=== PATIENT | male | born 1950 | race Caucasian/White ===

== ENCOUNTER 2020-06-19 08:37 | Emergency (ER) | payer MEDICARE, OTHER ==
[~2020-06-19] VITALS: Ht 180.3 cm; Wt 81.8 kg
[2020-06-19] MEDS ORDERED: LISINOPRIL10 MG PO (08:50)
[2020-06-19] MEDS ORDERED: CLOPIDOGREL75 MG PO (08:50)
[2020-06-19] MEDS ORDERED: NORVASC5 M1 PO (08:51)
[2020-06-19] MEDS ORDERED: LORTAB5 PO (08:54)
[2020-06-19] MEDS ORDERED: HYDROCO/APAP1 TA9 PO (09:58)
[2020-06-19 10:35] VITALS: BP 164/77
== END 2020-06-19 10:35 | disposition home or self-care (01) ==
LOC: ED 08:37
DX: S83.92XA Sprain of unspecified site of left knee, initial encounter (principal); M25.462 Effusion, left knee; I12.9 Hypertensive chronic kidney disease with stage 1 through stage 4 chronic kidney disease, or unspecified chronic kidney disease; N18.9 Chronic kidney disease, unspecified; F17.200 Nicotine dependence, unspecified, uncomplicated; X50.0XXA Overexertion from strenuous movement or load, initial encounter; Y93.89 Activity, other specified; Y92.008 Other place in unspecified non-institutional (private) residence as the place of occurrence of the external cause
CPT/HCPCS: L1830

== ENCOUNTER 2024-02-04 15:14 | Emergency (ER) | payer MEDICARE, OTHER ==
[2024-02-04] VITALS (13 sets, daily range): BP systolic 127–171; BP diastolic 52–127
[~2024-02-04] VITALS: Ht 177.8 cm; Wt 77.1 kg
[~2024-02-04 15:14] MED LIST: CLOPIDOGREL75 MG PO; CVS OMEPRAZOLE20 M1 PO; HYDROCO/APAP1 TA9 PO; LISINOPRIL10 MG PO; LORTAB5 PO; MITIGARE0.6 MG PO; NORVASC5 M1 PO; OXYCODO-APAP1 TA2 PO; VITAMIN C1000 MG PO
[2024-02-04 15:52] LABS: BASO% 0.6 % (0-3); EOS% 2.4 % (0-8); HEMATOCRIT 29.6 % (39.0-50.0); HEMOGLOBIN 9.1 g/dl (14.0-18.0); IMMATURE GRANULOCYTES 0.3 % (0.0-5.0); LYMPH% 21.1 % (15-41); MEAN CORPUSCULAR HGB 23.6 pG CALC (26.0-32.0); MEAN CORPUSCULAR HGB CONC 30.7 g/dL CAL (32.0-36.0); NEUT# 5.82 thou/uL (1.82-7.42); NEUT% 62.6 % (42-76); RED BLOOD COUNT 3.85 mill/uL (4.70-6.10); RED CELL DISTRI WIDTH 16.9 % (11.5-15.5)
[2024-02-04 15:53] LABS: MEAN CELL VOLUME 76.9 fL CALC (80.0-100.0)
[2024-02-04 16:16] LABS: ALBUMIN 4.4 g/dL (3.2-5.0); BILIRUBIN, TOTAL 0.4 mg/dL (0.2-1.3); CREATININE 1.2 mg/dL (0.7-1.3); POTASSIUM 4.9 mmol/l (3.5-5.1)
== END 2024-02-04 18:15 | disposition home or self-care (01) ==
LOC: ED 15:14
PROVIDERS: Family Medicine
DX: Z03.89 Encounter for observation for other suspected diseases and conditions ruled out (principal); I12.9 Hypertensive chronic kidney disease with stage 1 through stage 4 chronic kidney disease, or unspecified chronic kidney disease; N18.9 Chronic kidney disease, unspecified; Z95.820 Peripheral vascular angioplasty status with implants and grafts; Z89.612 Acquired absence of left leg above knee; Z89.611 Acquired absence of right leg above knee